=== PATIENT | male | born 1945 | race Caucasian/White ===

== ENCOUNTER 2023-03-20 10:54 | Outpatient (OUT) | payer MEDICARE, SELFPAY | END 2023-03-20 10:55 | disposition home or self-care (01) | LOC: LAB 11:04 | PROVIDERS: PCP Internal Medicine; Visit Provider Otolaryngology | DX: J32.0 Chronic maxillary sinusitis (principal) | CPT/HCPCS: 87070 ==

== ENCOUNTER 2023-04-25 14:06 | Outpatient (OUT) | payer MEDICARE, SELFPAY ==
--- NOTE | 2023-04-25 14:10 | CT_ITS ---
The [address] [address] Patient Name: REBECCA PAIZ MRN: [id number] date: 1945 Sex: M Assigned Patient Location: CT Current Patient Location: CT Accession/Order Number: [id number] Exam Date: 04/25/2023 14:14 Report Date: 04/25/2023 14:38 At the request of: CARMINA MANRIQUE Procedure: CT sinus wo con EXAM: CT sinus wo con HISTORY: Sinusitis for the past 3 months. COMPARISON: None. TECHNIQUE: Multiple thin computed tomograms of the paranasal sinuses were obtained, with sagittal and coronal reconstructions. Radiation reduction technique and algorithms were utilized during the study. FINDINGS: The paranasal sinuses are well-developed. There is complete opacification of the right maxillary sinus and near complete opacification with air bubbles of the left maxillary sinus. There are multiple completely opacified ethmoid air cells, particularly on the right. There is near complete opacification of the right frontal sinus with small air bubbles. Prominent mucosal thickening is seen in the left frontal sinus. Prominent mucosal thickening and near complete opacification is seen in the sphenoid sinuses. The ostiomeatal complex on either side is occluded with soft tissues. The orbital rims and floors are intact. The adjacent soft tissues surrounding the sinuses are intact. There is mild deviation of the nasal septum to the left with an osteophyte also extending to the left. Mucosal thickening results in occlusion of the upper aspect of the nasal passages on the right, and the remainder of the nasal passages are intact. The middle ears are aerated. The visualized mastoid sinuses are clear. CT/CT sinus wo con IMPRESSION: Findings are consistent with a combination of acute and chronic pansinusitis. The ostiomeatal complex on either side is occluded. There is mild deviation of the nasal septum to the left. There is some narrowing and occlusion of the nasal passages along the upper aspect on the right. Direct comparison with a previous study may be helpful in determining the chronicity of these findings. Electronically authenticated by: MEKA WEST Date: 04/25/2023 14:38
== END 2023-04-25 14:07 | disposition home or self-care (01) ==
LOC: CT 14:07
PROVIDERS: PCP Internal Medicine; Visit Provider Otolaryngology
DX: J32.0 Chronic maxillary sinusitis (principal); J34.2 Deviated nasal septum; J34.89 Other specified disorders of nose and nasal sinuses
CPT/HCPCS: 70486